=== PATIENT | female | born 1940 | race Caucasian/White ===

== ENCOUNTER 2021-02-27 15:04 | Emergency (ER) | payer MEDICARE ==
[~2021-02-27] VITALS: Ht 167.6 cm; Wt 81.7 kg
[2021-02-27] MEDS ORDERED: ELIQUIS5 MG PO (15:06)
[2021-02-27] MEDS ORDERED: COREG25 M1 PO (15:07)
[2021-02-27] MEDS ORDERED: DICLOFENAC SOD100 G1 (15:07)
[2021-02-27] MEDS ORDERED: CALCIUM500 MG PO (15:07)
[2021-02-27] MEDS ORDERED: ARICEPT10 M1 PO (15:07)
[2021-02-27] MEDS ORDERED: LORATIDINE 10 M10 M1 PO (15:08)
[2021-02-27] MEDS ORDERED: LEVO-T75 MCG PO (15:08)
[2021-02-27] MEDS ORDERED: NAMENDA 10 MG T10 MG PO (15:08)
[2021-02-27] MEDS ORDERED: MELATONIN10 M3 PO (15:08)
[2021-02-27] MEDS ORDERED: HYDRALAZINE 2525 MG PO (15:08)
[2021-02-27] MEDS ORDERED: ZOLOFT 50 MG TA50 MG PO (15:09)
[2021-02-27] MEDS ORDERED: OLMESARTAN MEDO20 MG PO (15:09)
[2021-02-27 15:53] VITALS: BP 163/69
== END 2021-02-27 15:53 | disposition home or self-care (01) ==
LOC: M.ERS 15:04
DX: S01.80XA Unspecified open wound of other part of head, initial encounter (principal); Z79.891 Long term (current) use of opiate analgesic; Z79.1 Long term (current) use of non-steroidal anti-inflammatories (NSAID); Z79.899 Other long term (current) drug therapy; Z88.6 Allergy status to analgesic agent; Z91.040 Latex allergy status; Z88.5 Allergy status to narcotic agent; Z88.8 Allergy status to other drugs, medicaments and biological substances; Z91.09 Other allergy status, other than to drugs and biological substances; W22.8XXA Striking against or struck by other objects, initial encounter; Y93.89 Activity, other specified; Y92.89 Other specified places as the place of occurrence of the external cause; Y99.8 Other external cause status

== ENCOUNTER 2021-03-18 11:08 | Emergency (ER) | payer MEDICARE ==
[~2021-03-18] VITALS: Ht 172.7 cm; Wt 72.6 kg
[~2021-03-18 11:08] MED LIST: ARICEPT10 M1 PO; CALCIUM500 MG PO; COREG25 M1 PO; DICLOFENAC SOD100 G1; ELIQUIS5 MG PO; HYDRALAZINE 2525 MG PO; LEVO-T75 MCG PO; LORATIDINE 10 M10 M1 PO; MELATONIN10 M3 PO; NAMENDA 10 MG T10 MG PO; OLMESARTAN MEDO20 MG PO; ZOLOFT 50 MG TA50 MG PO
[2021-03-18] MEDS ORDERED: ALAWAY10 ML EA. EYE (11:35)
[2021-03-18] MEDS ORDERED: FUROSEMIDE 20 M20 MG PO (11:36)
[2021-03-18] MEDS ORDERED: OYSTER SHELL C500 MG PO (11:38)
[2021-03-18] MEDS ORDERED: KLOR-CON M2020 MEQ PO (11:39)
[2021-03-18] MEDS ORDERED: MAPAP500 MG PO (11:41)
[2021-03-18 11:59] LABS: ABSOLUTE BASOPHILS 0.1 thou/uL (0.0-0.2); ABSOLUTE EOSINOPHILS 0.2 thou/uL (0.0-0.7); ABSOLUTE LYMPHOCYTES 1.3 thou/uL (0.8-5.3); ABSOLUTE MONOCYTES 0.7 thou/uL (0.0-1.2); ABSOLUTE NEUTROPHILS 4.9 thou/uL (1.6-8.1); BASOPHILS 1.5 %; EOSINOPHILS 2.4 %; HEMATOCRIT 30.9 % (37.0-47.0); HEMOGLOBIN 10.4 gm/dL (12.0-15.0); LYMPHOCYTES 17.7 %; MCH 32.3 pg (26.0-34.0); MCHC 33.7 g/dL (28.0-37.0); MCV 95.8 fL (80.0-100.0); MONOCYTES 10.1 %; MPV 7.5 fl. (7.2-11.1); NUCLEATED RBCS 0 /100WBC; PLATELET COUNT* 223 thou/uL (150-400); POLYS 68.3 %; RBC 3.23 mil/uL (4.20-5.00); RDW-CV 13.5 % (10.5-14.5); WBC 7.2 thou/uL (4.0-11.0)
[2021-03-18 12:06] LABS: CALCIUM 9.2 mg/dL (8.5-10.1); CREATININE 1.3 mg/dL (0.6-1.3)
[2021-03-18 12:10] LABS: ALBUMIN 3.3 g/dL (3.4-5.0); TOTAL BILIRUBIN 0.5 mg/dL (<0.1-1.0); TOTAL PROTEIN 6.5 g/dL (6.4-8.2)
--- NOTE | 2021-03-18 12:43 | EKG ---
[place] [address] ELECTROCARDIOGRAM REPORT Name: CARLY FINEMATTHEW Willian Room: [facility]#: [id number] Admission: 03/18/21 Attend Phys: Discharge: Date of : 40 Date of Service: 03/18/21 1136 Report #: [id number] THIS REPORT FOR: //name// [facility] ED Test Date: 2021-03-18 Test Time: 11:36:55 Pat Name: SANG FINE Department: Room: Gender: F Copier Technician: : 1940 Requested By: Luis So Order Number: [id number] MD: Trevor Card Measurements Intervals [place] [facility] Rate: 52 P: SD: QRS: 70 QRSD: 108 T: 45 QT: 477 QTc: 444 Interpretive Statements Atrial fibrillation Low voltage, precordial leads Nonspecific repol abnormality, diffuse leads No previous ECG available for comparison Electronically Signed On 03-18-2021 12:43:13 CDT by Trevor Card [email or web address] <ELECTRONICALLY SIGNED> By: Trevor Card MD, [facility] 03/18/21 1243 1136 1136 Trevor Card MD, [facility] /EPI
[2021-03-18 13:50] LABS: URINE BILIRUBIN NEGATIVE (Negative); URINE BLOOD NEGATIVE (Negative); URINE CLARITY CLEAR; URINE COLOR YELLOW; URINE GLUCOSE-RANDOM NEGATIVE (Negative); URINE KETONES NEGATIVE (Negative); URINE LEUKOCYTES NEGATIVE (Negative); URINE NITRITE NEGATIVE (Negative); URINE PROTEIN NEGATIVE (Negative); URINE UROBILINOGEN 0.2 E.U./dl (0.2-1.0)
[2021-03-18 14:37] VITALS: BP 134/46
== END 2021-03-18 15:00 | disposition home or self-care (01) ==
LOC: M.ERS 11:08
PROVIDERS: Physician Assistant
DX: S32.000A Wedge compression fracture of unspecified lumbar vertebra, initial encounter for closed fracture (principal); M25.552 Pain in left hip; I10 Essential (primary) hypertension; I48.91 Unspecified atrial fibrillation; E03.9 Hypothyroidism, unspecified; F41.9 Anxiety disorder, unspecified; Z79.899 Other long term (current) drug therapy; Z88.5 Allergy status to narcotic agent; Z88.1 Allergy status to other antibiotic agents; Z88.8 Allergy status to other drugs, medicaments and biological substances; Z88.6 Allergy status to analgesic agent; Z91.040 Latex allergy status; W18.30XA Fall on same level, unspecified, initial encounter; Y93.89 Activity, other specified; Y92.89 Other specified places as the place of occurrence of the external cause; Y99.8 Other external cause status

== ENCOUNTER 2021-05-13 04:14 | Emergency (ER) | payer MEDICARE ==
[~2021-05-13] VITALS: Ht 165.1 cm; Wt 83.0 kg
[~2021-05-13 04:14] MED LIST changes: +ALAWAY10 ML EA. EYE; +FUROSEMIDE 20 M20 MG PO; +KLOR-CON M2020 MEQ PO; +MAPAP500 MG PO; +OYSTER SHELL C500 MG PO
[2021-05-13] MEDS ORDERED: DIVALPROEX SOD125 M1 (04:26)
[2021-05-13 13:20] VITALS: BP 184/81
== END 2021-05-13 13:25 | disposition home or self-care (01) ==
LOC: M.ERS 04:14
DX: Z04.89 Encounter for examination and observation for other specified reasons (principal); I10 Essential (primary) hypertension; I48.91 Unspecified atrial fibrillation; E03.9 Hypothyroidism, unspecified; Z88.8 Allergy status to other drugs, medicaments and biological substances; Z91.040 Latex allergy status; Z79.899 Other long term (current) drug therapy; Z85.3 Personal history of malignant neoplasm of breast; W18.30XA Fall on same level, unspecified, initial encounter; Y93.89 Activity, other specified; Y92.128 Other place in nursing home as the place of occurrence of the external cause; Y99.9 Unspecified external cause status